=== PATIENT | male | born 1985 | race African-American/Black ===

== ENCOUNTER 2017-07-16 01:49 | Emergency (ER) | payer MEDICAID, OTHER ==
[~2017-07-16] VITALS: Ht 167.6 cm; Wt 88.0 kg
[~2017-07-16 01:49] MED LIST: AMOX500T PO; OXYC-360 PO
[2017-07-16 01:56] VITALS: BP 154/99; PULSE 88; RESP 20; TEMP 98.8; O2SAT 100
--- NOTE | 2017-07-16 02:50 | PD ---
HPI Chief Complaint: Oral / Dental Pain or Problem Time Seen by Provider: 02:44 Travel History International Travel<30 days: No Contact w/Intl Traveler<30days: No Traveled to known affect area: No History of Present Illness HPI 32-year-old male presents emergency department we will complains of dental pain. Patient states that he has had a cavity in his tooth for some time now it had bothered him intermittently. It got more intense today. He denies any fever chills. He states the pain does radiate towards his left ear. No nausea vomiting. No abdominal pain or diarrhea. No dysuria frequency. Symptoms are mild to moderate. No alleviating factor. History Past Medical Histgory Medical History: Denies Significant Hx Tetanus Vaccination: Unknown Past Surgical History Surgical History: No Previous Surgery Social History Alcohol Use: Yes Tobacco Use: Yes (CIGARS) Allergies-Medications (Allergen,Severity, Reaction): Coded Allergies: No Known Allergies (Verified Adverse Reaction, Unknown, 07/16/17) Reported Meds & Prescriptions Reported Meds & Active Scripts Active No Active Prescriptions or Reported Medications Review of Systems General / Constitutional: No: Fever Eyes: No: Visual changes HENT: Positive: Dental Difficulties, Earache, No: Headaches, Sore Throat, Congestion, Neck Pain, Gingival Bleeding Cardiovascular: No: Chest Pain or Discomfort Respiratory: No: Shortness of Breath Gastrointestinal: No: Abdominal Pain Genitourinary: No: Dysuria Musculoskeletal: No: Pain Skin: No Rash Neurologic: No: Weakness Psychiatric: No: Depression Endocrine: No: Polydipsia Hematologic/Lymphatic: No: Easy Bruising Physical Exam Narrative GENERAL: Well-developed, well-nourished in no acute distress. Nontoxic appearing. HEAD: Normocephalic, atraumatic. EYES: Pupils equal round and reactive. Extraocular motions intact. No scleral icterus. No injection or drainage. ENT: TMs clear without erythema. The external auditory canals clear. Nose: clear . Posterior pharynx is pink and moist. No tonsillar edema or exudate. Uvula midline. Airway patent. Patient has a dental carry and tooth #19. Tender to percussion. Mild gingival erythema. NECK: Trachea midline.Supple, nontender, moves head freely. No central bony tenderness or spasm. CARDIOVASCULAR: Regular rate and rhythm without murmurs, gallops, or rubs. RESPIRATORY: Clear to auscultation. Breath sounds equal bilaterally. No wheezes , rales, or rhonchi. GASTROINTESTINAL: Abdomen soft, non-tender, nondistended. No hepato-splenomegaly , or palpable masses. No guarding. EXTREMITIES: No clubbing, cyanosis, or edema. No joint tenderness, effusion, or edema noted. BACK: Nontender without deformity or crepitance. No flank tenderness. Data Data Last Documented VS Vital Signs Date Time Temp Pulse Resp B/P (MAP) Pulse Ox O2 Delivery O2 Flow Rate FiO2 07/16/17 01:56 98.8 88 20 154/99 (117) 100 MDM Medical Screen Exam Complete: Yes Emergency Medical Condition: No Differential Diagnosis MDM: Moderate Differential diagnoses: Dental abscess, dental caries, osteitis, cellulitis Narrative Course A medical screening exam was performed: At the time of evaluation the presenting medical condition was determined not to be of an emergent nature. The patient was given the option of receiving additional care, but declined. Patient was given options for additional community resources from which to obtain care. The Patient Has Been advised to seek medical attention for their presenting complaint. The patient has been advised to return to the ER at any time if an emergent condition develops. Primary Impression: Encounter for medical screening examination Scripts No Active Prescriptions or Reported Meds Condition: Mayank Thompson Jul 16, 2017 02:50
== END 2017-07-16 03:00 | disposition left against medical advice (07) ==
LOC: NEPD 01:49
DX: K08.89 Other specified disorders of teeth and supporting structures (principal); Z72.0 Tobacco use
CPT/HCPCS: 99281